=== PATIENT | male | born 1950 | race Caucasian/White ===

== ENCOUNTER 2023-10-12 12:17 | Outpatient (AMB) | payer MEDICARE, SELFPAY ==
--- NOTE | 2023-10-12 14:11 | AM.OFFWIN_ITS ---
Intake Vital Signs 10/12/23 14:29 Weight 269 lb 8 oz BP 144/84 H Blood Pressure Location Lt brachial Position Sitting Pulse 96 Pulse Source Pulse Oximeter Pulse Oximetry (%) 93 Oxygen Delivery Method Room Air Intake Visit Reasons: GOSPEL [employer]INGER/cough ([id number]) Intake Note: pt is here today for cough started last Monday. Tested positive for covid Monday.. Patient Tobacco Use Status: Never used Tobacco Allergies No Known Allergies Allergy (Verified 10/12/23 14:20) Do you need a note to return to daycare/school/sports/work: No HPI HPI Comments History of Present Illness Details The patient presents to urgent care for evaluation of cough. He reports the cough has been keeping him up at night. A week ago he was diagnosed with COVID and seemed to be doing well though has had a persistent cough. He denies fever chills nausea vomiting. He has no past medical history and is not currently on any medications. He reports that he has been unable to lay flat at night after chayito COVID and had to sleep upright in his recliner. He believes he strained a muscle in his right abdomen after a coughing fit. He now has pain in the right side of his abdomen and is still unable to lay flat at night due to the coughing episodes. [facility] Social History Patient Tobacco Use Status: Never used Tobacco Physical Exam Vital Signs: Last Vital Signs Pulse 96 10/12/23 14:29 BP 144/84 H 10/12/23 14:29 Pulse Ox 93 10/12/23 14:29 Oxygen Delivery Method Room Air 10/12/23 14:29 Const General: healthy appearing and no acute distress Orientation/consciousness: patient oriented x3 Eyes Corneas: corneas normal Pupils: Equal, round and reactive pupils present Chest Chest palpation & inspection: no tenderness Resp Effort & Inspection: normal respiratory effort and able to speak in complete sentences Auscultation: clear to auscultation bilaterally GI Other: mild tenderness palpation in the right upper quadrant Inspection: Yes normal to inspection Palpation (GI): nontender Neuro General: patient oriented x3 Cranial nerves: Yes Equal, round and reactive pupils present Psych Appearance: grossly normal Attitude: cooperative Assessment & Plan Assessment & Plan (1) Cough: Code(s): R05.9 - Cough, unspecified Plan the patient with ongoing cough after COVID unable to lay flat. Will get chest x-ray for further evaluation. Otherwise well-appearing. He also has some abdominal tenderness after coughing vigorously this is likely muscular strain. I do not suspect intra-abdominal pathology. Patient will have a cough suppressant sent to his pharmacy and chest x-ray as well. Orders: Orders XR chest 2V Today R07.81 - Pleurodynia Medications: New codeine-guaifenesin 10-100 mg/5 mL 5 mL PO Q6H PRN 120 mL 0RF allergy symptoms benzonatate 100 mg PO TID PRN 14 caps 0RF cough Coding Level of Care Code Est Pt Level 3 (51696) Diagnoses Cough R05.9
[2023-10-12 14:29] VITALS: BP 144/84; PULSE 96; O2SAT 93
== END 2023-10-12 15:23 | disposition home or self-care (01) ==
PROVIDERS: Visit Provider Emergency Medicine
DX: R05.9 Cough, unspecified (principal)
CPT/HCPCS: 99213

== ENCOUNTER 2023-10-12 15:10 | Outpatient (REF) | payer MEDICARE, SELFPAY ==
--- NOTE | ~2023-10-12 | XR_ITS ---
EXAMINATION: XR CHEST CLINICAL INFORMATION: Pleurodynia COMPARISON: None available. TECHNIQUE: 2 views of the chest were obtained. FINDINGS: No significant abnormality is noted involving the heart, lungs, mediastinum, bony thorax or soft tissues. XR/XR chest 2V IMPRESSION: Unremarkable examination.
== END 2023-10-12 15:11 | disposition home or self-care (01) ==
LOC: HO.HMGCX 15:10
PROVIDERS: PCP Internal Medicine; Visit Provider Emergency Medicine
DX: R07.81 Pleurodynia (principal)
CPT/HCPCS: 71046